=== PATIENT | female | born 1995 | race Caucasian/White ===

== ENCOUNTER 2020-03-15 13:03 | Emergency (ER) | payer MEDICAID ==
[~2020-03-15] VITALS: Ht 149.9 cm; Wt 67.0 kg
[~2020-03-15 13:03] MED LIST: MEDR150D3 SQ; NONE PER PT
[2020-03-15] MEDS ORDERED: DEPO-PROVERA (13:35)
--- NOTE | 2020-03-15 13:36 | NUR ---
PT RESTING ON GURNEY CONNECTED TO NIBP CUFF AND PULSE OX MONITOR. PT C/O THREE DAYS OF LLQ ABDOMINAL OR "OVARY" PAIN AND INTERMITTENT "CERVICAL PAIN". PT HAS HAD TWO D&C PROCEDURES. PT C/O 03/17 PAIN TODAY. CALL LIGHT HERMINIA REACH. EDPA AT BEDSIDE. NO NEEDS EXPRESSED AT THIS TIME.
[2020-03-15 14:20] LABS: BASOPHILS # (AUTO) 0.03 x10^3/uL (0-0.1); BASOPHILS % (AUTO) 1 % (0-1); EOSINOPHILS # (AUTO) 0.08 x10^3/uL (0-0.4); EOSINOPHILS % (AUTO) 1 % (1-7); LYMPHOCYTES # (AUTO) 2.33 x10^3/uL (1-3.4); LYMPHOCYTES % (AUTO) 34 % (22-44); MD NO; MEAN CORPUSCULAR HEMOGLOBIN 30.4 pg (27.0-34.8); MEAN CORPUSCULAR HGB CONC 32.9 g/dL (32.4-35.8); MEAN CORPUSCULAR VOLUME 92.3 fL (80-100); MEAN PLATELET VOLUME 8.1 fL (7.4-10.4); MONOCYTES # (AUTO) 0.43 x10^3/uL (0.2-0.8); MONOCYTES % (AUTO) 6 % (2-9); NEUTROPHILS # (AUTO) 4.08 x10^3/uL (1.8-6.8); NEUTROPHILS % (AUTO) 59 % (42-75); PLATELET COUNT 271 x10^3/uL (130-400); RED BLOOD COUNT 4.56 x10^6/uL (3.82-5.3); RED CELL DISTRIBUTION WIDTH 12.6 % (9.6-15.2)
[2020-03-15 14:31] LABS: ALANINE AMINOTRANSFERASE 34 U/L (12-78); CALCIUM 9.4 mg/dL (8.5-10.1); CREATININE 0.61 mg/dL (0.55-1.02)
--- NOTE | 2020-03-15 14:31 | NUR ---
Pt away from ED at this time at ultrasound.
[2020-03-15 14:33] LABS: ALKALINE PHOSPHATASE 92 U/L (45-117); BILIRUBIN,TOTAL 0.4 mg/dL (0.2-1.0); TOTAL PROTEIN 7.9 g/dL (6.4-8.2)
[2020-03-15 14:40] LABS: ANION GAP 6 mmol/L (5-15); CHLORIDE 108 mmol/L (98-107)
[2020-03-15] MEDS ORDERED: HYDROcodone/APAP 5/325 TABLET PO ONE (15:00)
[2020-03-15] MEDS ORDERED: KETOROLAC 30 MG/1 ML IM ONE (15:00)
[2020-03-15 15:29] LABS: MICROSCOPIC NOT IND
[2020-03-15] MEDS ORDERED: ACETAMINOPHEN 500 MG TABLET PO ONE (15:30)
--- NOTE | 2020-03-15 15:34 | NUR ---
LATE NOTE ENTRY DUE TO PT CARE. PT BACK TO ROOM FROM US. PT PROVIDED URINE SAMPLE. PROVIDED PT MEDICATION PER EMAR. NO OTHER NEEDS EXPRESSED AT THIS TIME.
[2020-03-15] MEDS ORDERED: ACETAMINOPHEN 500 MG TABLET ONE (15:41)
[2020-03-15 16:29] VITALS: BP 100/68
== END 2020-03-15 16:31 | disposition home or self-care (01) ==
LOC: ED 15:26
DX: R10.2 Pelvic and perineal pain (principal); R11.0 Nausea; R51 Headache
CPT/HCPCS: 36415; 76830; 80053; 81003; 84702; 85025; 96372; 99284; J1885

== ENCOUNTER 2020-06-06 17:10 | Emergency (ER) | payer MEDICAID ==
[~2020-06-06] VITALS: Ht 149.9 cm; Wt 66.7 kg
[~2020-06-06 17:10] MED LIST changes: +DEPO-PROVERA
--- NOTE | 2020-06-06 17:20 | NUR ---
C-COLLER PLACED IN TRIAGE, PLACED IN WHEELCHAIR AND TAKEN TO LOBBY
--- NOTE | 2020-06-06 18:02 | NUR ---
BREAD AND PASTRY BAKER: PT TO ROOM VIA WHEELCHAIR FROM [facility]ON[facility]
[2020-06-06 19:18] VITALS: BP 122/78
--- NOTE | 2020-06-06 19:18 | NUR ---
It Technician walked into room after receiving report from day shift noted c-collar on bed and patient isn't wearing it. Patient stated that her pain is 7/10. VSS, patient resting comfortably at this time
== END 2020-06-06 19:58 | disposition home or self-care (01) ==
LOC: ED 19:46
DX: S16.1XXA Strain of muscle, fascia and tendon at neck level, initial encounter (principal); V43.52XA Car driver injured in collision with other type car in traffic accident, initial encounter; Y93.89 Activity, other specified; Y92.488 Other paved roadways as the place of occurrence of the external cause; Y99.8 Other external cause status
CPT/HCPCS: 72050; 99283